=== PATIENT | female | born 1960 | race Caucasian/White ===

== ENCOUNTER 2017-05-02 09:59 | Day surgery (SDC) | payer BC ==
[~2017-05-02] VITALS: Ht 162.6 cm; Wt 79.1 kg
[2017-05-02] MEDS ORDERED: SODIUM CHLORIDE 0.9% 1,000 ML IV SCH (10:22)
[2017-05-02 10:25] VITALS: BP 132/71
[2017-05-02] MEDS ORDERED: CLOP75TA PO (11:06)
[2017-05-02] MEDS ORDERED: MAGN400T36 PO (11:06)
[2017-05-02] MEDS ORDERED: CHOL20002 PO (11:06)
[2017-05-02] MEDS ORDERED: POTA1POW4 PO (11:06)
[2017-05-02] MEDS ORDERED: TRIA10.8 NAS (11:06)
[2017-05-02] MEDS ORDERED: METO5TAB5 PO (11:06)
[2017-05-02] MEDS ORDERED: DIAZ5TAB4 PO (11:06)
[2017-05-02] MEDS ORDERED: ATOR20TA9 PO (11:06)
[2017-05-02] MEDS ORDERED: BETA15CR5 TP (11:06)
[2017-05-02] MEDS ORDERED: OLME40TA PO (11:06)
[2017-05-02] MEDS ORDERED: OMEP-110 PO (11:06)
[2017-05-02] MEDS ORDERED: ALBU8.5H3 PO (11:07)
[2017-05-02] MEDS ORDERED: FENTANYL PF 100 MCG/2ML ONE (12:19)
[2017-05-02] MEDS ORDERED: LIDOCAINE 2%, 20ML ONE (12:20)
[2017-05-02] MEDS ORDERED: VERAPAMIL 2.5 MG/ML, 2ML ONE (12:20)
[2017-05-02] MEDS ORDERED: MIDAZOLAM 1 MG/ML, 5ML ONE (12:20)
[2017-05-02] MEDS ORDERED: HEPARIN 1,000 UNITS/ML, 10ML ONE (12:20)
[2017-05-02] MEDS ORDERED: ADENOSINE IV PRN (13:30)
[2017-05-02] MEDS ORDERED: SODIUM CHLORIDE 0.9% IV PRN (13:30)
== END 2017-05-02 15:29 ==
LOC: CACL 09:59
PROVIDERS: ATTEND Internal Medicine Cardiovascular Disease
DX: I27.2 Other secondary pulmonary hypertension (principal); I10 Essential (primary) hypertension; I25.10 Atherosclerotic heart disease of native coronary artery without angina pectoris; E78.2 Mixed hyperlipidemia; G47.30 Sleep apnea, unspecified; Z88.5 Allergy status to narcotic agent; Z88.8 Allergy status to other drugs, medicaments and biological substances; Z91.013 Allergy to seafood; Z79.899 Other long term (current) drug therapy; Z95.5 Presence of coronary angioplasty implant and graft
CPT/HCPCS: 93451; 93463; 99156; 99157; C1894; J2250; J3010; J1644; J3490

== ENCOUNTER 2017-10-29 10:34 | Observation (INO) | payer BC ==
[~2017-10-29] VITALS: Ht 162.6 cm; Wt 90.3 kg
[~2017-10-29 10:34] MED LIST: ALBU8.5H8 PO; ATOR20TA9 PO; BETA15CR5 TP; CHOL20002 PO; CLOP75TA PO; DIAZ5TAB4 PO; MAGN400T36 PO; METO5TAB5 PO; OLME40TA12 PO; OMEP-110 PO; POTA1POW4 PO; TRIA10.8 NAS
[2017-10-29] MEDS ORDERED: RIOC2.5T PO (11:38)
[2017-10-29] MEDS ORDERED: DIAZEPAM 5 MG TABLET ONE (11:40)
[2017-10-29] MEDS ORDERED: ASPIRIN 81 MG TABLET CHEW ONE (11:41)
[2017-10-29 11:48] LABS: BASOPHILS # (AUTO) 0.04 x10^3/uL (0-0.1); BASOPHILS % (AUTO) 0 % (0-1); EOSINOPHILS # (AUTO) 0.08 x10^3/uL (0-0.4); EOSINOPHILS % (AUTO) 1 % (1-7); LYMPHOCYTES % (AUTO) 20 % (22-44); MD NO; MEAN CORPUSCULAR HEMOGLOBIN 29.9 pg (27.0-34.8); MEAN CORPUSCULAR HGB CONC 34.2 g/dL (32.4-35.8); MEAN CORPUSCULAR VOLUME 87.6 fL (80-100); MEAN PLATELET VOLUME 8.1 fL (7.4-10.4); MONOCYTES # (AUTO) 0.71 x10^3/uL (0.2-0.8); MONOCYTES % (AUTO) 8 % (2-9); NEUTROPHILS % (AUTO) 71 % (42-75); PLATELET COUNT 342 x10^3/uL (130-400); RED BLOOD COUNT 4.69 x10^6/uL (3.82-5.3)
[2017-10-29 11:57] LABS: ALANINE AMINOTRANSFERASE 32 U/L (12-78); ANION GAP 9 mmol/L (5-15); CALCIUM 10.3 mg/dL (8.5-10.1); CHLORIDE 103 mmol/L (98-107); CREATININE 0.84 mg/dL (0.55-1.02)
[2017-10-29 11:59] LABS: INTERNATIONAL NORMALIZED RATIO 1.06 (0.93-1.1); PROTHROMBIN TIME 10.9 Seconds (9.6-11.5)
[2017-10-29] MEDS ORDERED: DIAZEPAM 5 MG TABLET PO ONE (12:00)
[2017-10-29] MEDS ORDERED: ASPIRIN 81 MG TABLET CHEW PO ONE (12:00)
[2017-10-29 12:02] LABS: ALKALINE PHOSPHATASE 73 U/L (45-117); BILIRUBIN,TOTAL 0.6 mg/dL (0.2-1.0); TOTAL PROTEIN 7.9 g/dL (6.4-8.2); TROPONIN I < 0.015 ng/mL (0.000-0.045)
[2017-10-29] MEDS ORDERED: SODIUM CHLORIDE FLUSH 10ML SYR IVF ONE (12:30)
[2017-10-29] MEDS ORDERED: ENALAPRILAT 1.25 MG/ML, 2ML IVPush PRN (14:00)
[2017-10-29] MEDS ORDERED: DOCUSATE 100 MG CAPSULE PO PRN (14:00)
[2017-10-29] MEDS ORDERED: NITROGLYCERIN 0.4 MG BOTTLE (25 TABS) SL PRN (14:00)
[2017-10-29] MEDS ORDERED: ONDANSETRON 2MG/ML, 2ML IVPush PRN (14:00)
[2017-10-29] MEDS ORDERED: LABETALOL 5MG/ML, 20ML IVPush PRN (14:00)
[2017-10-29] MEDS ORDERED: POLYETHYLENE GLYCOL 17 GM PACKET PO PRN (14:00)
[2017-10-29] MEDS ORDERED: BISACODYL 10 MG SUPP PR PRN (14:00)
[2017-10-29 14:36] LABS: TROPONIN I < 0.015 ng/mL (0.000-0.045)
[2017-10-29] MEDS ORDERED: CALC-623 PO (14:38)
[2017-10-29] MEDS ORDERED: OLME20TA19 PO (14:38)
[2017-10-29] MEDS ORDERED: FEXO60TA24 PO (14:38)
[2017-10-29 14:40] VITALS: BP 106/70
[2017-10-29] MEDS ORDERED: TEMPLATE NON-FORMULARY MED. (Riociguat** (Adempas**) 2.5 MG) PO SCH ×2 (16:00)
[2017-10-29] MEDS: DIAZEPAM 5 MG TABLET PO SCH ×2 (16:23→20:57)
[2017-10-29] MEDS ORDERED: ALBUTEROL SULFATE 2.5 MG/3 ML NPPB PRN (16:30)
[2017-10-29] MEDS: TEMPLATE NON-FORMULARY MED. (Riociguat** (Adempas**) 2.5 MG) HOMEMEDPO SCH ×2 (19:00→20:58)
[2017-10-29 20:07] LABS: TROPONIN I < 0.015 ng/mL (0.000-0.045)
[2017-10-29 20:18] VITALS: BP 119/82
[2017-10-29] MEDS ORDERED: ATORVASTATIN 20 MG TABLET PO SCH (21:00)
[2017-10-30 00:45] VITALS: BP 109/73
[2017-10-30 05:08] LABS: BASOPHILS # (AUTO) 0.02 x10^3/uL (0-0.1); BASOPHILS % (AUTO) 0 % (0-1); EOSINOPHILS # (AUTO) 0.13 x10^3/uL (0-0.4); EOSINOPHILS % (AUTO) 2 % (1-7); LYMPHOCYTES # (AUTO) 1.71 x10^3/uL (1-3.4); LYMPHOCYTES % (AUTO) 25 % (22-44); MD NO; MEAN CORPUSCULAR HEMOGLOBIN 29.9 pg (27.0-34.8); MEAN CORPUSCULAR HGB CONC 33.9 g/dL (32.4-35.8); MEAN CORPUSCULAR VOLUME 88.3 fL (80-100); MEAN PLATELET VOLUME 7.9 fL (7.4-10.4); MONOCYTES # (AUTO) 0.68 x10^3/uL (0.2-0.8); MONOCYTES % (AUTO) 10 % (2-9); NEUTROPHILS # (AUTO) 4.28 x10^3/uL (1.8-6.8); NEUTROPHILS % (AUTO) 63 % (42-75); PLATELET COUNT 318 x10^3/uL (130-400); RED BLOOD COUNT 4.44 x10^6/uL (3.82-5.3); RED CELL DISTRIBUTION WIDTH 14.1 % (9.6-15.2)
[2017-10-30 05:10] LABS: CHLORIDE 104 mmol/L (98-107)
[2017-10-30 05:27] LABS: ANION GAP 8 mmol/L (5-15); CALCIUM 10.1 mg/dL (8.5-10.1); CREATININE 0.76 mg/dL (0.55-1.02); THYROID STIMULATING HORMONE 0.712 mIU/L (0.358-3.740)
[2017-10-30] MEDS: DIAZEPAM 5 MG TABLET PO SCH ×2 (05:47→11:36)
[2017-10-30] MEDS ORDERED: ASPIRIN 325 MG TABLET EC PO SCH (06:00)
[2017-10-30] MEDS ORDERED: MAGNESIUM SULFATE PMX 4GM/100M 100 ML IV ONE (07:00)
[2017-10-30] MEDS: TEMPLATE NON-FORMULARY MED. (Riociguat** (Adempas**) 2.5 MG) HOMEMEDPO SCH (08:23)
[2017-10-30] MEDS ORDERED: REGADENOSON 0.4 MG/5 ML SYRINGE ONE (08:24)
[2017-10-30 08:44] VITALS: BP 113/74
[2017-10-30] MEDS ORDERED: CLOPIDOGREL 75 MG TABLET PO SCH (09:00)
[2017-10-30] MEDS ORDERED: CHOLECALCIFEROL 1,000 UNIT TABLET PO SCH (09:00)
[2017-10-30] MEDS ORDERED: LOSARTAN 50MG TABLET PO SCH (09:00)
[2017-10-30] MEDS ORDERED: MAGNESIUM OXIDE 400 MG TABLET PO SCH ×2 (09:00)
[2017-10-30] MEDS ORDERED: METOLAZONE 5 MG TABLET PO SCH (09:00)
[2017-10-30] MEDS ORDERED: ALBUTEROL SULFATE 2.5 MG/3 ML NPPB SCH (09:00)
[2017-10-30] MEDS ORDERED: OMEPRAZOLE 20 MG CAPSULE.DR PO SCH (09:00)
[2017-10-30] MEDS ORDERED: BETAMETHASONE DIPRO CRM 0.05%, 15GM TP SCH (09:00)
[2017-10-30] MEDS ORDERED: TRIAMCINOLONE ACETONIDE 55 MCG NAS SCH (09:00)
== END 2017-10-30 13:40 | disposition home or self-care (01) ==
LOC: ED 13:00 → EDIP 13:40 → 5SO 14:24
PROVIDERS: ADMIT Internal Medicine; ATTEND Internal Medicine
DX: R07.89 Other chest pain (principal); I27.20 Pulmonary hypertension, unspecified; G47.33 Obstructive sleep apnea (adult) (pediatric); E78.5 Hyperlipidemia, unspecified; I10 Essential (primary) hypertension; K21.9 Gastro-esophageal reflux disease without esophagitis; G43.909 Migraine, unspecified, not intractable, without status migrainosus; I25.10 Atherosclerotic heart disease of native coronary artery without angina pectoris; F41.0 Panic disorder [episodic paroxysmal anxiety]; Z95.5 Presence of coronary angioplasty implant and graft; Z87.891 Personal history of nicotine dependence; Z82.49 Family history of ischemic heart disease and other diseases of the circulatory system; G89.29 Other chronic pain
CPT/HCPCS: 36415; 71045; 78452; 80048; 80053; 83735; 83880; 84443; 84484; 85025; 85610; 85730; 93005; 93017; 93306; 96365; 96366; 99285; A9502; C9898; G0378; J2785; J3475

== ENCOUNTER → 2018-08-07 | Outpatient (CLI) | payer BC ==
[~2018-08-07] MED LIST changes: +CALC-623 PO; -CHOL20002 PO; +CHOL200052 PO; +FEXO60TA24 PO; +OLME20TA17 PO; +RIOC2.5T PO
== END | disposition home or self-care (01) ==
LOC: CFH 08:52
PROVIDERS: ATTEND Internal Medicine Cardiovascular Disease
DX: I07.1 Rheumatic tricuspid insufficiency (principal); E78.5 Hyperlipidemia, unspecified
CPT/HCPCS: 93306

== ENCOUNTER 2019-01-18 08:41 | Day surgery (SDC) | payer BC ==
[~2019-01-18] VITALS: Ht 160 cm; Wt 84.0 kg
[~2019-01-18 08:41] MED LIST changes: +ATOR20TA37 PO; -ATOR20TA9 PO
[2019-01-18] MEDS ORDERED: DIPHENHYDRAMINE 50 MG/ML, 1ML IVPush ONE (09:30)
[2019-01-18] MEDS ORDERED: PLEASE ENTER HEIGHT AND WEIGHT MC SCH (09:30)
[2019-01-18] MEDS ORDERED: TORS10TA PO (09:34)
[2019-01-18] MEDS ORDERED: POTA20TA14 PO (09:34)
[2019-01-18 09:58] VITALS: BP 108/64
[2019-01-18] MEDS ORDERED: HEPARIN 1,000 UNITS/ML, 10ML ONE (10:06)
[2019-01-18] MEDS ORDERED: MIDAZOLAM 1 MG/ML, 2ML ONE (10:06)
[2019-01-18] MEDS ORDERED: FENTANYL PF 100 MCG/2ML ONE (10:06)
[2019-01-18] MEDS ORDERED: LIDOCAINE-MPF 1%, 5ML ONE (10:06)
[2019-01-18] MEDS ORDERED: DIPHENHYDRAMINE 50 MG/ML, 1ML ONE (10:11)
[2019-01-18 10:16] LABS: ANION GAP 7 mmol/L (5-15); CALCIUM 10.8 mg/dL (8.5-10.1); CHLORIDE 100 mmol/L (98-107); CREATININE 0.62 mg/dL (0.55-1.02)
== END 2019-01-18 13:39 | disposition home or self-care (01) ==
LOC: CACL 08:41
PROVIDERS: ATTEND Internal Medicine Cardiovascular Disease
DX: I27.0 Primary pulmonary hypertension (principal); Z88.5 Allergy status to narcotic agent; Z88.8 Allergy status to other drugs, medicaments and biological substances; Z91.040 Latex allergy status
CPT/HCPCS: 36415; 80048; 93451; C1894; J1200; J2250; J3010; J1644

== ENCOUNTER 2019-11-27 07:21 | Outpatient (CLI) | payer MEDICARE, BC ==
[~2019-11-27 07:21] MED LIST changes: +POTA20TA14 PO; +TORS10TA PO
== END 2019-11-27 23:59 | disposition home or self-care (01) ==
LOC: CFH 07:21
PROVIDERS: ATTEND Internal Medicine Cardiovascular Disease
DX: I25.10 Atherosclerotic heart disease of native coronary artery without angina pectoris (principal); R06.02 Shortness of breath
CPT/HCPCS: 93306